=== PATIENT | female | born 1970 | race Caucasian/White ===

== ENCOUNTER → 2019-01-29 | Outpatient (REF) | payer OTHER | LOC: M LAB REF 12:54 | PROVIDERS: ATTEND Otolaryngology | DX: R22.0 Localized swelling, mass and lump, head (principal) ==

== ENCOUNTER 2019-02-13 13:33 | Emergency (ER) | payer OTHER ==
[~2019-02-13] VITALS: Ht 162.6 cm; Wt 79.5 kg
[2019-02-13] MEDS ORDERED: NAPR-885 PO (15:40)
[2019-02-13] MEDS ORDERED: DOXY100C37 PO (15:40)
[2019-02-13 15:46] LABS: BASO # 0.1 10^3/uL (0.0-0.2); BASO % 1.4 % (0.0-1.0); EOS # 0.3 10^3/uL (0.0-0.5); EOS % 4.1 % (0.0-3.0); HEMATOCRIT 49.5 % (36.0-47.0); HEMOGLOBIN 16.4 g/dl (12.0-15.5); LYMPH # 1.4 10^3/uL (1.5-5.0); LYMPH % 18.6 % (24.0-44.0); MEAN CORPUSCULAR HEMOGLOBIN 30.7 pg (27.0-33.0); MEAN CORPUSCULAR HGB CONC 33.1 g/dl (32.0-36.5); MEAN CORPUSCULAR VOLUME 92.7 fl (80.0-96.0); MONO # 0.5 10^3/uL (0.0-0.8); MONO % 6.4 % (0.0-5.0); NEUTROPHILS % 68.4 % (36.0-66.0); PLATELET COUNT, AUTOMATED 246 10^3/uL (150-450); RED BLOOD COUNT 5.34 10^6/uL (4.00-5.40); WHITE BLOOD COUNT 7.4 10^3/uL (4.0-10.0)
[2019-02-13 16:11] LABS: BLOOD UREA NITROGEN 10 MG/DL (7-18); C REACTIVE PROTEIN QUANTITATIV 0.49 MG/DL (0.00-0.30); CARBON DIOXIDE LEVEL 23 MEQ/L (21-32); CHLORIDE LEVEL 110 MEQ/L (98-107); CREATININE FOR GFR 0.94 MG/DL (0.55-1.30); GLOMERULAR FILTRATION RATE > 60.0 (>58); GLUCOSE, FASTING 87 MG/DL (70-100); POTASSIUM SERUM 4.3 MEQ/L (3.5-5.1); SODIUM LEVEL 139 MEQ/L (136-145)
[2019-02-13] MEDS ORDERED: ISOVUE-370 76% 100ML VIAL (Q9967) As Ordered ONE (16:39)
[2019-02-13 16:43] LABS: ERYTHROCYTE SEDIMENTATION RATE 4 mm/hr (0-20)
--- NOTE | 2019-02-13 17:05 | REP ---
CT face: 02/13/2019. Indication: Left face soft tissue swelling. Comparison: None. Technique: Axial images of the neck/face were obtained following the administration of 75 ml IV Isovue 370. Findings: The left parotid gland is enlarged with surrounding inflammatory sequelae and a hyperdense punctate presumed sialolith along the anterior lateral border. There is no abscess. The submandibular and right parotid glands are unremarkable. There are no air-fluid levels, frothy secretions or significant periosteal mucosal thickening within the paranasal sinuses. Small bilateral maxillary retention cysts are present. The mastoid air cells are clear. No significant ocular, intraorbital or intracranial abnormalities are detected. The airway is patent. No significant vascular abnormalities are detected. Impression: Left-sided parotitis possibly from partially obstructing sialolith. Foreign body is additionally considered. Correlation with any previous imaging would be helpful. No abscess. Electronically Signed by Adelso Sawyer DO 02/13/2019 04:56 P
[2019-02-13 17:19] VITALS: BP 153/79
--- NOTE | 2019-02-14 10:26 | ED PDOC ---
Post-Departure Follow-Up dr knight faxed formal report of ct max fac for fu mlf=Mateo Pollock MD Feb 14, 2019 10:26
== END 2019-02-13 17:41 | disposition home or self-care (01) ==
LOC: M ED 13:33
DX: K11.5 Sialolithiasis (principal); K11.20 Sialoadenitis, unspecified; Z88.0 Allergy status to penicillin; Z91.018 Allergy to other foods; F17.218 Nicotine dependence, cigarettes, with other nicotine-induced disorders
CPT/HCPCS: 70487; 80048; 85025; 85652; 86140; 87040; 99283; Q9967

== ENCOUNTER 2019-04-02 07:00 | Day surgery (SDC) | payer OTHER ==
[~2019-04-02] VITALS: Ht 162.6 cm; Wt 89.7 kg
[~2019-04-02 07:00] MED LIST: DOXY100C37 PO; IBUP200C25 PO; LR 1,000 ML IV ONE; NAPR-885 PO; dexameTHASONE 4 MG/ML 1ML VIAL (J1100) IV ONE
[2019-04-02] MEDS ORDERED: LIDOCAINE 1% MDV 20ML VIAL As Ordered ONE (07:55)
[2019-04-02] MEDS ORDERED: propofoL 200 MG/20 ML VIAL As Ordered ONE ×2 (09:18→12:03)
[2019-04-02] MEDS ORDERED: LIDOCAINE 2% INJ 100 MG/5 ML SDV (FOR ANES.) As Ordered ONE (09:18)
[2019-04-02] MEDS ORDERED: ONDANSETRON 4MG/2ML VIAL (J2405) As Ordered ONE (09:19)
[2019-04-02] MEDS ORDERED: dexameTHASONE 4 MG/ML 1ML VIAL (J1100) As Ordered ONE (09:19)
[2019-04-02] MEDS ORDERED: fentaNYL 100 MCG/2 ML INJECTION (J3010) As Ordered ONE ×2 (09:20→10:35)
[2019-04-02] MEDS ORDERED: MIDAZOLAM INJ 2 MG/2 ML VIAL (J2250) As Ordered ONE (09:20)
[2019-04-02] MEDS ORDERED: ROCURONIUM BROMIDE 50 MG/5 ML VIAL As Ordered ONE ×2 (09:22→11:25)
[2019-04-02] MEDS ORDERED: LIDOCAINE W/EPINEPHRINE 1% 20ML VIAL As Ordered ONE (10:06)
[2019-04-02] MEDS ORDERED: BACITRACIN OINT 30GM As Ordered ONE (10:06)
[2019-04-02] MEDS ORDERED: TRIAMCINOLONE ACETONIDE SUSP 40 MG/ML VIAL (J3301) As Ordered ONE (10:29)
[2019-04-02] MEDS ORDERED: SUGAMMADEX SODIUM 500 MG/5 ML VIAL (BRIDION) As Ordered ONE (10:42)
[2019-04-02] MEDS ORDERED: ACETAMINOPHEN 1000MG 100ML IV BTL (OFIRMEV) (J0131 PER 10MG) As Ordered ONE (10:43)
[2019-04-02] MEDS ORDERED: CLINDAMYCIN 600 MG in IV 1 EA IV ONE (11:00)
[2019-04-02] MEDS: KETOROLAC 30 MG/ML VIAL (J1885) IV PRN ×2 (11:00→13:00)
[2019-04-02] MEDS: PERCOCET 5MG/325MG TAB PO PRN ×3 (11:00→14:00)
[2019-04-02] MEDS ORDERED: OXYMETAZOLINE NASAL SPRAY (AFRIN) As Ordered ONE (11:40)
--- NOTE | 2019-04-02 11:58 | REP ---
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 Preoperative needle localization of the calculus was requested prior to planned operative intervention. Comparison maxillofacial CT study is from February 13, 2019. Procedure: The patient was interviewed and informed consent was obtained. The patient was placed in a supine oblique position on the CT gantry and preliminary CT images were performed without contrast. There is induration of the parotid gland visible with some mild dermal thickening in the region where prior study showed the stone. The calculus is not visualized. Accordingly, the patient was turned into maxillofacial CT positioning and a formal maxillofacial CT study was acquired. The calculus is no longer visible consistent with spontaneous extrusion, less likely resorption. These thin sections demonstrate a small quantity of air in the distal parotid duct just lateral to the buccal surface. No calculus is seen. Induration of the left parotid gland is noted. There is no visible fluid collection on this noncontrast study. There does appear to be a superior intraparotid lymph node which is 1.1 cm in greatest diameter. Findings were reviewed at the CT console with the referring surgeon Dr. Hampton. Impression: A CT localization procedure was aborted because preliminary CT images failed to identify the calculus. This has apparently spontaneously expressed itself during the period of time when the patient had spontaneous drainage from the overlying skin. There is persistent or recurrent inflammation of the left parotid gland and adjacent subcutaneous fat. Electronically Signed by Ky Estevez MD 04/02/2019 06:26 P
[2019-04-02] MEDS ORDERED: ONDANSETRON 4MG/2ML VIAL (J2405) IV PRN (13:00)
[2019-04-02] MEDS ORDERED: METOCLOPRAMIDE INJ 10MG/2ML VIAL (J2765) IV PRN (13:00)
[2019-04-02] MEDS ORDERED: fentaNYL 100 MCG/2 ML INJECTION (J3010) IV PRN (13:00)
[2019-04-02] MEDS ORDERED: LR 1,000 ML IV SCH ×2 (13:00→14:00)
[2019-04-02] MEDS ORDERED: KETOROLAC 30 MG/ML VIAL (J1885) As Ordered ONE (13:01)
[2019-04-02] MEDS ORDERED: PERCOCET 5MG/325MG TAB As Ordered ONE (13:01)
[2019-04-02 14:30] VITALS: BP 154/73
--- NOTE | 2019-04-15 17:05 | RO ---
DATE OF PROCEDURE: 04/02/2019 PREOPERATIVE DIAGNOSIS: Chronic left parotitis and sialolithiasis. POSTOPERATIVE DIAGNOSIS: Chronic left parotitis and sialolithiasis. PROCEDURE PERFORMED: Sialoendoscopy of the left parotid gland. SURGEON: Delvis Hampton MD MINILAB OPERATOR: ANESTHESIA: General. CLINICAL PREAMBLE: This 48-year-old woman presented to the office with a history of chronic recurrent left parotitis secondary to sialolithiasis. CT neck done in January 2019 showed a fairly distal sialolith near the cutaneous plane. As such, patient was scheduled for sialoendoscopy with possible excision of the stone. On the day of procedure, the patient underwent the CT localization of the sialolith. However, on the CT localization procedure, the stone was no longer present. However, patient continues to complain of sensation of recurrent swelling of the left parotid gland. As such a decision was made to proceed with the sialoendoscopy of the left parotid gland with an irrigation of the Kenalog solution. The patient understood and consented for the procedure. DESCRIPTION OF PROCEDURE: Patient was identified in preoperative holding and brought to the operating room and the left face marked. She was brought to the operating room in supine position. In supine position on the operating room table, patient received general anesthesia followed nasotracheal intubation without incident. Patient was prepped and draped in the usual fashion for the procedure. The left Favio's duct was identified on the buccal mucosa just adjacent to the upper left molar teeth. Dilation was then performed using the lacrimal probes. A 0.6 mm sialoendoscope was introduced into the left Favio's duct. Approximately, 0.8 mL Kenalog solution was successfully used to irrigate the parotid gland via the Favio's duct. The duct intubated using the salivary duct stent. It was then secured to the buccal mucosa. At the end of the procedure sponge and instrument counts were correct. No complication was encountered. Estimated blood loss was less than 5 mL. General anesthesia was reversed and the patient was extubated, brought to the recovery room in stable condition. In the recovery area, patient exhibited full and symmetrical facial motion.
== END 2019-04-02 14:35 | disposition home or self-care (01) ==
LOC: M SDC 07:00
PROVIDERS: ATTEND Otolaryngology
DX: K11.23 Chronic sialoadenitis (principal); K11.5 Sialolithiasis; K21.9 Gastro-esophageal reflux disease without esophagitis; F32.9 Major depressive disorder, single episode, unspecified; F17.210 Nicotine dependence, cigarettes, uncomplicated; Z91.018 Allergy to other foods; Z88.1 Allergy status to other antibiotic agents; Z88.0 Allergy status to penicillin; Z91.013 Allergy to seafood; Z79.899 Other long term (current) drug therapy
CPT/HCPCS: 42699; J0131; J1100; J1885; J2250; J2405; J3010; J3301